=== PATIENT | female | born 1940 | race Asian ===

== ENCOUNTER 2022-07-08 03:20 | Inpatient (IN) | payer BC ==
[~2022-07-08] VITALS: Ht 172.7 cm; Wt 74.8 kg
[2022-07-08] MEDS ORDERED: IV D5/ 0.9% NACL 1,000 ML IV SCH (04:30)
[2022-07-08] MEDS ORDERED: MAGNESIUM HYDROXIDE 30 ML UDC PO PRN (04:30)
[2022-07-08] MEDS ORDERED: HYDROCODONE/APAP 7.5/325MG 1 EACH TABLET PO PRN (04:30)
[2022-07-08] MEDS ORDERED: ONDANSETRON HCL/PF 4 MG/2 ML VIAL IVP PRN (04:30)
[2022-07-08] MEDS ORDERED: ACETAMINOPHEN 325 MG TABLET PO PRN (04:30)
[2022-07-08] MEDS ORDERED: HYDROMORPHONE INJ 2 MG/ML DISP.SYRIN IV PRN (04:30)
[2022-07-08] MEDS ORDERED: ZOLPIDEM TARTRATE 5 MG TABLET PO PRN (04:30)
[2022-07-08 04:55] VITALS: BP 120/80
[2022-07-08] MEDS ORDERED: LORAZEPAM 1 MG TABLET PO ONE (06:35)
== END 2022-07-08 08:54 | disposition still patient (30) | DRG 951 ==
LOC: MED 03:20 → MEDSG1 04:31
PROVIDERS: ADMIT Internal Medicine; ATTEND Internal Medicine
DX: Z00.00 Encounter for general adult medical examination without abnormal findings (principal)
CPT/HCPCS: G0378; J7042